=== PATIENT | female | born 1985 | race Caucasian/White ===

== ENCOUNTER 2019-08-01 19:20 | Emergency (ER) | payer MEDICAID ==
[~2019-08-01] VITALS: Ht 160 cm; Wt 117.9 kg
[2019-08-01 19:55] VITALS: BP 140/59
--- NOTE | 2019-08-01 20:02 | NUR ---
PT PROVIDING URINE AND AMBULATED TO LOBBY.
--- NOTE | 2019-08-01 21:58 | NUR ---
PT AMBULATED TO BED 12.
--- NOTE | 2019-08-01 22:33 | NUR ---
ERMD AT BEDSIDE.
--- NOTE | 2019-08-01 22:38 | NUR ---
33 Y/O FEMALE BIB SELF C/O UPPER BACK PAIN RADIATING TO RIGHT SHOULDER X4 DAYS. DENIES TRAUMA. NO DECREASE IN ROM. BOTH ARMS ARE SYMMETRICAL. ROM IN BOTH ARMS AND STRENGTH ARE STRONG. STATES DIFFICULTY SLEEPING D/T PAIN. 06/21. PATIENT IS A/O AND CAN FOLLOW COMMANDS. ERMD MADE AWARE OF STATUS. SIDE RAILSX2. PATIENT IS IN NO APPARENT DISTRESS AT THIS TIME. HX: DENIES NKDA PMH:NONE
[2019-08-01] MEDS ORDERED: KETOROLAC 60 MG/2 ML VIAL IM ONE (22:45)
[2019-08-01 23:21] VITALS: BP 130/60
== END 2019-08-01 23:19 | disposition home or self-care (01) ==
LOC: MED 19:20
DX: S29.012A Strain of muscle and tendon of back wall of thorax, initial encounter (principal); M25.511 Pain in right shoulder; X58.XXXA Exposure to other specified factors, initial encounter; Y93.89 Activity, other specified; Y92.89 Other specified places as the place of occurrence of the external cause; Y99.8 Other external cause status
CPT/HCPCS: 71045; 73030; 96372; 99283; J1885